=== PATIENT | male | born 1990 | race Two or more races ===

== ENCOUNTER 2020-04-08 15:13 | Inpatient (IN) | payer BC ==
[2020-04-08] MEDS ORDERED: Ondansetron 4 MG Tab.DIS PO PRN (16:44)
[2020-04-08] MEDS ORDERED: Ondansetron 4 MG/2 ML SDV IV PRN (16:44)
[2020-04-08] MEDS ORDERED: Morphine 2 MG/ML SYRINGE IVPUSH PRN (16:44)
[2020-04-08] MEDS ORDERED: Ketorolac 30 MG/ML SDV IM PRN (16:44)
[2020-04-08] MEDS ORDERED: Acetaminophen 325 MG Tab PO PRN (16:44)
[2020-04-08] MEDS ORDERED: Heparin Sodium 5,000 Units/ML Vial SUBCUT SCH (16:45)
[2020-04-08] MEDS ORDERED: Levofloxacin/Dextrose 5%-Water 500 MG in Premix Bag 1 BAG IV SCH (16:45)
[2020-04-08] MEDS ORDERED: metroNIDAZOLE/Normal Saline 500 MG in Premix Bag 1 BAG IV SCH (16:45)
--- NOTE | 2020-04-08 16:54 | PCM.HP.2 ---
H&P History of Present Illness - General Date of Service: 04/08/20 Admit Problem/Dx: Admission Diagnosis/Problem Admission Diagnosis/Problem Acute appendicitis Source of Information: Patient History Limitations: Reports: Language Barrier (used an video group manager) - History of Present Illness Initial Comments - Free Text/Narative: Patient developed right lower quadrant pain yesterday afternoon. He thought the pain would go away but it persisted overnight and he could not sleep. Pain is associated with nausea but not vomiting. He presented to the ED in [place] where WBC was 11, Tbili was 2.2, CT a/p for which we have a read confirmed an early appendicitis. The patient is a Yoruba speaking and video group manager was used to obtain history and physical. He reports a long standing intermittent abdominal pains mostly in the lower abdomen. This has been going on for several years. Sometimes it is in the RLQ and associated with nausea. Has been evaluated by doctors in [place] and was told that he has inflammation of his bowels. Was placed on Omeprazole, and Metoclopromide which he is not sure they help. He denies any melena or blood in stool, no diarrhea, no weight loss but has weight gain. Has episodes of constipation and family history of constipation. Onset of Symptoms: Reports: Gradual Duration of Symptoms: Reports: Day(s): (1), Getting Worse Location: Reports: Abdomen Quality: Reports: Dull Severity: Mild Improves with: Reports: Immobilization Worsens with: Reports: Movement Associated Symptoms: Reports: Nausea/Vomiting - Related Data Allergies/Adverse Reactions: Allergies Allergy/AdvReac Type Severity Reaction Status Date / Time Sulfa (Sulfonamide Allergy Severe Hives Verified 04/08/20 15:26 Antibiotics) Home Medications: Home Meds . [No Known Home Meds] 04/08/20 [History] Past Medical History - Past Health History Medical/Surgical History: Denies Medical/Surgical History Social & Family History - Tobacco Use Smoking Status *Q: Current Every Day Smoker Years of Tobacco use: 2 Packs/Tins Daily: 0.1 - Caffeine Use Caffeine Use: Reports: Coffee, Soda - Recreational Drug Use Recreational Drug Use: No H&P Review of Systems - Review of Systems: Review Of Systems: See Below General: Reports: No Symptoms HEENT: Reports: No Symptoms Pulmonary: Reports: No Symptoms Cardiovascular: Reports: No Symptoms Gastrointestinal: Reports: Abdominal Pain Genitourinary: Reports: No Symptoms Musculoskeletal: Reports: No Symptoms Skin: Reports: No Symptoms Psychiatric: Reports: No Symptoms Neurological: Reports: No Symptoms Exam - Exam Exam: See Below - Vital Signs Vital Signs: Last Vital Signs Temp 98.3 F 04/08/20 15:37 Pulse 67 04/08/20 15:37 Resp 20 04/08/20 15:37 BP 134/80 04/08/20 15:37 Pulse Ox 100 04/08/20 15:37 Weight: 90.718 kg - Exam General: Alert, Oriented, Cooperative Cardiovascular: Regular Rate, Regular Rhythm, Normal S1, Normal S2 GI/Abdominal Exam: Normal Bowel Sounds, Soft, No Organomegaly, No Distention, No Mass, Tender (mild point tenderness in the RLQ with deep palpation, no guarding, no rebound) Sepsis Event Note - Evaluation Sepsis Screening Result: No Definite Risk - Focused Exam Vital Signs: Vital Signs Temp Pulse Resp BP Pulse Ox 04/08/20 15:37 98.3 F 67 20 134/80 100 Date Exam was Performed: 04/08/20 Time Exam was Performed: 16:58 Problem List Initiated/Reviewed/Updated: No Orders Last 24hrs: Active Orders 24 hr Category Date Time Status Patient Status Manage Transfer [TRANSFER] Routine ADT 04/08/20 16:43 Active Patient Status [ADT] Routine ADT 04/08/20 16:45 Active Ambulate [RC] ASDIRECTED Care 04/08/20 16:44 Active Cardiac Monitoring [RC] INTERMITTENT Care 04/08/20 16:45 Active Intake and Output [RC] QSHIFT Care 04/08/20 16:45 Active May Shower [RC] ASDIRECTED Care 04/08/20 16:44 Active Oxygen Therapy [RC] PRN Care 04/08/20 16:45 Active Pulse Oximetry [RC] PRN Care 04/08/20 16:45 Active Up ad [place] [RC] ASDIRECTED Care 04/08/20 16:44 Active VTE/DVT Education [RC] PER UNIT ROUTINE Care 04/08/20 16:45 Active Vital Signs [RC] Q4H Care 04/08/20 16:45 Active Nothing per Oral Now Diet [DIET] Diet 04/08/20 Dinner Active CBC WITH AUTO DIFF [HEME] AM Lab 04/09/20 05:11 Ordered CORONAVIRUS COVID-19 STACEY [MOLEC] Urgent Lab 04/08/20 15:25 Received HEPATIC FUNCTION PANEL,HFP [CHEM] AM Lab 04/09/20 05:11 Ordered MAGNESIUM [CHEM] AM Lab 04/09/20 05:11 Ordered PHOSPHORUS [CHEM] AM Lab 04/09/20 05:11 Ordered Acetaminophen [Tylenol] Med 04/08/20 16:44 Ordered 650 mg PO Q4H PRN Heparin Sodium Med 04/08/20 16:45 Ordered 5,000 units SUBCUT Q8H Ketorolac [Toradol] Med 04/08/20 16:44 Ordered 30 mg IM Q6H PRN Lactated Ringers @ 125 MLS/HR(1000ml) Med 04/08/20 16:45 Ordered Lactated Ringers [Ringers, Lactated] 1,000 ml IV ASDIRECTED Levofloxacin/Dextrose 5%-Water [Levaquin in D5W 500 MG/ Med 04/08/20 16:45 Ordered 100 ML] 500 mg Premix Bag 1 bag IV Q24H Morphine Med 04/08/20 16:44 Ordered 2 mg IVPUSH Q2H PRN Ondansetron [Zofran ODT] Med 04/08/20 16:44 Ordered 4 mg PO Q4H PRN Ondansetron [Zofran] Med 04/08/20 16:44 Ordered 4 mg IV Q4H PRN metroNIDAZOLE/Normal Saline [Flagyl 500 MG in NS 100 ML Med 04/08/20 16:45 Ordered ] 500 mg Premix Bag 1 bag IV Q8H Resuscitation Status Routine Resus Stat 04/08/20 16:44 Ordered Medication Orders Acetaminophen (Tylenol) 650 mg PO Q4H PRN PRN Reason: Pain (Mild 1-3)/fever Heparin Sodium (Porcine) (Heparin Sodium) 5,000 units SUBCUT Q8H [facility] Lactated Ringer's (Ringers, Lactated) 1,000 mls @ 125 mls/hr IV ASDIRECTED BRITT[facility] Metronidazole 500 mg/ Premix 100 mls @ 100 mls/hr IV Q8H [facility] Levofloxacin/Dextrose 500 mg/ (Premix) 100 mls @ 100 mls/hr IV Q24H [facility] Ketorolac Tromethamine (Toradol) 30 mg IM Q6H PRN PRN Reason: Pain (moderate 4-6) Morphine Sulfate (Morphine) 2 mg IVPUSH Q2H PRN PRN Reason: Pain (severe 7-10) Stop: 04/09/20 16:47 Ondansetron HCl (Zofran Odt) 4 mg PO Q4H PRN PRN Reason: nausea, able to take PO Ondansetron HCl (Zofran) 4 mg IV Q4H PRN PRN Reason: Nausea/Vomiting Assessment/Plan Comment:: Patient has acute appendicitis. This is in early stage. He may has mild IBD or IBS per his history but based on my exam and imaging findings I believe he has early acute appendicitis. I discussed in details his options including antibiotics only or surgery. I discussed that if he chooses antibiotics, I would admit him for observation and monitoring. If he does not deteriorate then I will discharge him to home and he can resume work. I discussed with him that there is a chance of recurrence up to 30% in 1 yr with this option that increases with time. I told him that if he fails medical management he can still pursue surgery. I also discussed surgical option including need for weight restriction post op. All questions were answered. Patient wanted to pursue antibiotics at this time. - will admit, NPO, IVF, bowel rest with sips of water - IV abx today - CBC tomorrow - will re-assess tomorrow. - Mortality Measure Prognosis:: Good
[2020-04-08] MEDS: Lactated Ringers 1,000 ML IV SCH (20:40)
--- NOTE | 2020-04-08 21:16 | PCM.PREANE ---
Preanesthetic Assessment - Anesthesia/Transfusion/Family Hx Anesthesia History: No Prior Anesthesia Family History of Anesthesia Reaction: No Transfusion History: No Prior Transfusion(s) Intubation History: Unknown - Review of Systems Pulmonary: No Symptoms (Smoker:2-4 cigarettes per day times 1year. ETOH: occasionally ) Cardiovascular: No Symptoms Gastrointestinal: Abdominal Pain, Constipation, Decreased Appetite, Nausea Neurological: No Symptoms Other: Reports: None - Physical Assessment NPO Status Date: 04/07/20 NPO Status Time: 16:00 Vital Signs: Last Vital Signs Temp 36.8 C 04/08/20 15:37 Pulse 67 04/08/20 15:37 Resp 20 04/08/20 15:37 BP 134/80 04/08/20 15:37 Pulse Ox 100 04/08/20 15:37 Height: 1.83 m Weight: 88.995 kg ASA Class: 2E Mental Status: Alert & Oriented x3 Airway Class: Mallampati = 2 Dentition: Reports: Normal Dentition, Caries Thyro-Mental Finger Breadths: 3 Mouth Opening Finger Breadths: 3 ROM/Head Extension: Full Lungs: Clear to Auscultation, Normal Respiratory Effort Cardiovascular: Regular Rate, Regular Rhythm, No Murmurs - Lab Values: Laboratory Last Values SARS Virus RNA (PCR) Negative (NEGATIVE) 04/08/20 15:25 All labs reviewed and noted and within acceptable ranges to proceed with potential surgery. - Allergies Allergies/Adverse Reactions: Allergies Allergy/AdvReac Type Severity Reaction Status Date / Time Sulfa (Sulfonamide Allergy Severe Hives Verified 04/08/20 18:03 Antibiotics) - Anesthesia Plan Pre-Op Medication Ordered: None - Acknowledgements Anesthesia Type Planned: General Anesthesia Pt an Appropriate Candidate for the Planned Anesthesia: Yes Alternatives and Risks of Anesthesia Discussed w Pt/Guardian: Yes Pt/Guardian Understands and Agrees with Anesthesia Plan: Yes PreAnesthesia Questionnaire - Past Health History Medical/Surgical History: Denies Medical/Surgical History - SUBSTANCE USE Smoking Status *Q: Light Tobacco Smoker Tobacco Use Within Last Twelve Months: Cigarettes Recreational Drug Use History: No - HOME MEDS Home Medications: Home Meds . [No Known Home Meds] 04/08/20 [History] - CURRENT (IN HOUSE) MEDS Current Meds: Current Medications Acetaminophen (Tylenol) 650 mg PO Q4H PRN PRN Reason: Pain (Mild 1-3)/fever Heparin Sodium (Porcine) (Heparin Sodium) 5,000 units SUBCUT Q8H [facility] Last Admin: 04/08/20 18:32 Dose: 5,000 units Documented by: Lactated Ringer's (Ringers, Lactated) 1,000 mls @ 125 mls/hr IV ASDIRECTED [facility] Last Admin: 04/08/20 20:40 Dose: 125 mls/hr Documented by: Metronidazole 500 mg/ Premix 100 mls @ 100 mls/hr IV Q8H [facility] Last Admin: 04/08/20 18:26 Dose: 100 mls/hr Documented by: Levofloxacin/Dextrose 500 mg/ (Premix) 100 mls @ 100 mls/hr IV Q24H [facility] Last Admin: 04/08/20 18:25 Dose: 100 mls/hr Documented by: Ketorolac Tromethamine (Toradol) 30 mg IM Q6H PRN PRN Reason: Pain (moderate 4-6) Morphine Sulfate (Morphine) 2 mg IVPUSH Q2H PRN PRN Reason: Pain (severe 7-10) Stop: 04/09/20 16:47 Ondansetron HCl (Zofran Odt) 4 mg PO Q4H PRN PRN Reason: nausea, able to take PO Ondansetron HCl (Zofran) 4 mg IV Q4H PRN PRN Reason: Nausea/Vomiting
[2020-04-09] MEDS: metroNIDAZOLE/Normal Saline 500 MG in Premix Bag 1 BAG IV SCH ×2 (03:04→14:26)
[2020-04-09] MEDS: Heparin Sodium 5,000 Units/ML Vial SUBCUT SCH ×2 (03:05→14:26)
[2020-04-09] MEDS: Lactated Ringers 1,000 ML IV SCH (04:06)
[2020-04-09] MEDS ORDERED: metroNIDAZOLE 500 MG Tab PO SCH (15:00)
--- NOTE | 2020-04-09 15:19 | PCM.DCSUM1 ---
Discharge Summary - Hospital Course Free Text/Narrative:: Patient presented yesterday with an early appendicitis. We wanted to pursue non- operative management. Had minimal symptoms today and was able to tolerate solid diet and ambulate. He will be discharged on 8 more days of antibiotics to complete a 10-day course. He was warned to seek medical care should symptoms recur. Patient verbalized understanding. HPI Initial Comments: Non-operative management for acute appendicitis. Brief History: Did well with non-op management. See hospital course. Diagnosis: Stroke: No - Discharge Data Discharge Date: 04/09/20 Discharge Disposition: Home, Self-Care 01 Condition: Good - Referral to Home Health Primary Care Physician: PCP None - Patient Instructions Diet: Heart Healthy Diet Activity: As Tolerated Driving: May Drive Today (if he did not take opioid pain medications) Showering/Bathing: May Shower Notify Provider of: Fever, Increased Pain, Nausea and/or Vomiting - Discharge Plan *PRESCRIPTION DRUG MONITORING PROGRAM REVIEWED*: Not Applicable *COPY OF PRESCRIPTION DRUG MONITORING REPORT IN PATIENT USMAN: Not Applicable Prescriptions/Med Rec: metroNIDAZOLE [Flagyl] 500 mg PO TID #24 tablet levoFLOXacin [Levaquin] 500 mg PO Q24H 8 Days tablet Home Medications: Home Meds levoFLOXacin [Levaquin] 500 mg PO Q24H 8 Days tablet 04/09/20 [Rx] metroNIDAZOLE [Flagyl] 500 mg PO TID #24 tablet 04/09/20 [Rx] Oxygen Therapy Mode: Room Air Patient Handouts: Appendicitis, Adult, [id number], Steps to Quit Smoking Forms: ED Department Discharge Referrals: Ayden Palomino MD [Emergency Provider] - - Discharge Summary/Plan Comment DC Time >30 min.: Yes (awaiting a ride) - General Info Date of Service: 04/09/20 Admission Dx/Problem (Free Text: Admission Diagnosis/Problem Admission Diagnosis/Problem Acute appendicitis Subjective Update: Doing better. Minimal discomfort with deep palpation or ambulation. Tolerated regular diet today. No nausea, no fevers. WBC back to normal. Functional Status: Reports: Pain Controlled, Tolerating Diet, Ambulating, Urinating - Review of Systems General: Reports: No Symptoms HEENT: Reports: No Symptoms Pulmonary: Reports: No Symptoms Cardiovascular: Reports: No Symptoms Gastrointestinal: Reports: No Symptoms Genitourinary: Reports: No Symptoms Musculoskeletal: Reports: No Symptoms Skin: Reports: No Symptoms Neurological: Reports: No Symptoms - Patient Data Vitals - Most Recent: Last Vital Signs Temp 98.4 F 04/09/20 11:42 Pulse 63 04/09/20 11:42 Resp 20 04/09/20 11:42 BP 121/67 04/09/20 11:42 Pulse Ox 99 04/09/20 11:42 Weight - Most Recent: 88.451 kg I&O - Last 24 hours: Intake & Output 04/09/20 04/09/20 04/09/20 06:59 14:59 22:59 Intake Total 1300 620 Balance 1300 620 Lab Results - Last 24 hrs: Laboratory Results - last 24 hr 04/08/20 04/09/20 04/09/20 Range/Units 15:25 06:10 06:10 WBC 5.94 (4.23-9.07) K/mm3 RBC 4.97 (4.63-6.08) M/mm3 Hgb 14.2 (13.7-17.5) gm/dl Hct 41.7 (40.1-51.0) % MCV 83.9 (79.0-92.2) fl MCH 28.6 (25.7-32.2) pg MCHC 34.1 (32.2-35.5) g/dl RDW Std Deviation 39.5 (35.1-43.9) fL Plt Count 201 (163-337) K/mm3 MPV 10.6 (9.4-12.3) fl Neut % (Auto) 72.3 H (34.0-67.9) % Lymph % (Auto) 19.9 L (21.8-53.1) % [place] % (Auto) 6.4 (5.3-12.2) % Eos % (Auto) 1.2 (0.8-7.0) Baso % (Auto) 0.2 (0.1-1.2) % Neut # (Auto) 4.30 (1.78-5.38) K/mm3 Lymph # (Auto) 1.18 L (1.32-3.57) K/mm3 [place] # (Auto) 0.38 (0.30-0.82) K/mm3 Eos # (Auto) 0.07 (0.04-0.54) K/mm3 Baso # (Auto) 0.01 (0.01-0.08) K/mm3 Phosphorus 3.4 (2.6-4.7) mg/dL Magnesium 1.9 (1.8-2.4) mg/dl Total Bilirubin 2.0 H (0.2-1.0) mg/dL Direct Bilirubin 0.30 H (0.0-0.2) mg/dl Indirect Bilirubin 1.70 AST 16 (15-37) U/L ALT 29 (16-63) U/L Alkaline Phosphatase 80 (46-116) U/L Total Protein 6.9 (6.4-8.2) g/dl Albumin 3.6 (3.4-5.0) g/dl Globulin 3.3 gm/dL Albumin/Globulin Ratio 1.1 (1-2) SARS Virus RNA (PCR) Negative (NEGATIVE) Med Orders - Current: Current Medications Acetaminophen (Tylenol) 650 mg PO Q4H PRN PRN Reason: Pain (Mild 1-3)/fever Ketorolac Tromethamine (Toradol) 30 mg IM Q6H PRN PRN Reason: Pain (moderate 4-6) Levofloxacin (Levaquin) 500 mg PO Q24H [facility] Metronidazole (Flagyl) 500 mg PO TID REPLACED BY [facility] Last Admin: 04/09/20 14:59 Dose: 500 mg Documented by: Morphine Sulfate (Morphine) 2 mg IVPUSH Q2H PRN PRN Reason: Pain (severe 7-10) Stop: 04/09/20 16:47 Ondansetron HCl (Zofran Odt) 4 mg PO Q4H PRN PRN Reason: nausea, able to take PO Ondansetron HCl (Zofran) 4 mg IV Q4H PRN PRN Reason: Nausea/Vomiting Discontinued Medications Heparin Sodium (Porcine) (Heparin Sodium) 5,000 units SUBCUT Q8H REPLACED BY [facility] Last Admin: 04/08/20 18:32 Dose: 5,000 units Documented by: Heparin Sodium (Porcine) (Heparin Sodium) 5,000 units SUBCUT Q8H REPLACED BY [facility] Last Admin: 04/09/20 14:26 Dose: Not Given Documented by: Lactated Ringer's (Ringers, Lactated) 1,000 mls @ 125 mls/hr IV ASDIRECTED REPLACED BY [facility] Last Admin: 04/09/20 04:06 Dose: 125 mls/hr Documented by: Metronidazole 500 mg/ Premix 100 mls @ 100 mls/hr IV Q8H REPLACED BY [facility] Last Admin: 04/08/20 18:26 Dose: 100 mls/hr Documented by: Levofloxacin/Dextrose 500 mg/ (Premix) 100 mls @ 100 mls/hr IV Q24H REPLACED BY [facility] Last Admin: 04/08/20 18:25 Dose: 100 mls/hr Documented by: Metronidazole 500 mg/ Premix 100 mls @ 100 mls/hr IV Q8H REPLACED BY [facility] Last Admin: 04/09/20 14:26 Dose: Not Given Documented by: - Exam General: Reports: Alert, Oriented, Cooperative Lungs: Reports: Clear to Auscultation, Normal Respiratory Effort Cardiovascular: Reports: Regular Rate, Regular Rhythm, No Murmurs GI/Abdominal Exam: Soft, Non-Tender, No Organomegaly, No Distention, No Abnormal Bruit Skin: Reports: Warm, Dry, Intact
[2020-04-09] MEDS ORDERED: Levofloxacin 500 MG Tab PO SCH (18:00)
== END 2020-04-09 16:35 | disposition home or self-care (01) | DRG 254 ==
LOC: JD.ED 15:13 → JD.MS 16:45
PROVIDERS: ADMIT Surgery; ATTEND Surgery
DX: K35.80 Unspecified acute appendicitis (principal); Z88.2 Allergy status to sulfonamides; F17.210 Nicotine dependence, cigarettes, uncomplicated; Z20.828 Contact with and (suspected) exposure to other viral communicable diseases
CPT/HCPCS: 36415; 80076; 83735; 84100; 85025; A9270-GY; J1644; J1956; J3490; J7120; U0002